=== PATIENT | male | born 1980 | race Caucasian/White ===

== ENCOUNTER 2022-06-29 11:52 | Emergency (ER) | payer OTHER ==
[~2022-06-29] VITALS: Ht 167.6 cm; Wt 77.1 kg
[2022-06-29 12:11] VITALS: BP 169/114
--- NOTE | 2022-06-29 12:18 | NUR ---
Patient ambulated to bed 5.
--- NOTE | 2022-06-29 12:31 | NUR ---
IV started, bloodwork obtained, walked to lab.
--- NOTE | 2022-06-29 12:31 | NUR ---
Dr. Suarez evaluating patient at bedside.
[2022-06-29] MEDS ORDERED: NACL 0.9% 2,000 ML IV ONE (12:35)
[2022-06-29] MEDS ORDERED: ENALAPRILAT 2.5 MG/2 ML VIAL IVP ONE (12:35)
[2022-06-29 13:08] LABS: BASOPHILS % (AUTO) 0.3 % (0.0-2.0); EOSINOPHILS % (AUTO) 0.4 % (0.0-4.0); HEMATOCRIT 46.6 % (36-52); HEMOGLOBIN 16.2 g/dL (12.0-18.0); LYMPHOCYTES # (AUTO) 1.6 K/uL (2.0-11.5); LYMPHOCYTES % (AUTO) 15.1 % (20.5-51.1); MEAN CORPUSCULAR HEMOGLOBIN 31 pg (27-31); MEAN CORPUSCULAR HGB CONC 35 g/dL (33-37); MEAN CORPUSCULAR VOLUME 89.2 fL (80-94); MONOCYTES # (AUTO) 0.4 K/uL (0.8-1.0); MONOCYTES % (AUTO) 3.7 % (1.7-9.3); NEUTROPHILS # (AUTO) 8.3 K/uL (1.8-7.7); NEUTROPHILS % (AUTO) 80.5 % (42.2-75.2); PLATELET COUNT (AUTO) 331 K/uL (140-450); RED BLOOD CELL COUNT(AUTO) 5.23 MIL/uL (4.20-6.10); RED CELL DISTRIBUTION WIDTH 13.4 % (11.6-13.7); WHITE BLOOD COUNT (AUTO) 10.3 K/uL (4.8-10.8)
--- NOTE | 2022-06-29 13:20 | NUR ---
42 y/o male bib self from Clinic for high blood sugar. At triage, blood sugar read HI. Patient denies any fever, chills or SOB. Patient states "his mouth is dry and is very thirsty." Patient denies any diagnosis of Diabetes. Medical History: HTN NKDA
[2022-06-29 13:28] LABS: ANION GAP 19.8 (8-16); ASPARTATE AMINOTRANSFERASE 23 U/L (15-37); CHLORIDE 94 mmol/L (98-107); CREATININE 1.1 mg/dL (0.6-1.3); GFR ARICAN-AMERICAN 94 mL/min (>90); POTASSIUM 3.8 mmol/L (3.5-5.1); SODIUM SERUM 134 mmol/L (136-145); TOTAL BILIRUBIN 0.6 mg/dL (0.0-1.0); UREA NITROGEN, BLOOD 24 mg/dL (7-18)
[2022-06-29 13:34] LABS: GLUCOSE 604 mg/dL (74-106)
[2022-06-29 13:53] LABS: APPEARANCE,URINE CLEAR (CLEAR); BILIRUBIN,URINE NEGATIVE (NEGATIVE); BLOOD, URINE TRACE-I (NEGATIVE); COLOR,URINE YELLOW (YELLOW); LEUKOCYTE ESTERASE ,URINE NEGATIVE (NEGATIVE); NITRITE, URINE NEGATIVE (NEGATIVE); PH,URINE 5.5 (5.0-9.0); UGLUCOSE 3+ (NEGATIVE)
[2022-06-29] MEDS ORDERED: LISI-486 PO (13:59)
[2022-06-29] MEDS ORDERED: METF-346 PO (13:59)
[2022-06-29 14:05] LABS: OTHER CASTS, URINE None Seen /LPF (None Seen); RBC,URINE 0-5 /HPF (0-5); WBC,URINE 0-5 /HPF (0-5)
[2022-06-29] MEDS ORDERED: NACL 0.9% 1,000 ML IV ONE (14:40)
[2022-06-29] MEDS ORDERED: INSULIN REGULAR, HUMAN 100 UNIT/ML VIAL IV ONE (14:45)
--- NOTE | 2022-06-29 15:11 | NUR ---
Patient is laying in bed, respirations even and unlabored. All needs met by staff.
--- NOTE | 2022-06-29 16:06 | NUR ---
BLOOD SUGAR IS [address] DR. PEÑA MADE AWARE.
[2022-06-29 16:16] VITALS: BP 127/84
--- NOTE | 2022-06-29 16:16 | NUR ---
Patient discharged with v/s stable. Written and verbal after care instructions given. Patient alert, oriented and verbalized understanding of instructions. Ambulatory with steady gait. All questions addressed prior to discharge. ID band removed. Patient advised to follow up with PMD. Rx of lisinopril and metformin given. Opportunity to ask questions provided and answered.
--- NOTE | 2022-06-29 16:40 | NUR ---
The patient's care was reviewed and supervised by ED Agency Nurse 8, RN, RN.
--- NOTE | 2022-07-02 09:14 | NUR ---
LATE ENTRY. 0.9% NS DISCONTINUED AT 1616 ON 06/29/22
== END 2022-06-29 16:16 | disposition home or self-care (01) ==
LOC: MED 11:52
DX: E11.65 Type 2 diabetes mellitus with hyperglycemia (principal); I10 Essential (primary) hypertension; Z79.4 Long term (current) use of insulin; Z79.899 Other long term (current) drug therapy
CPT/HCPCS: 36415; 71045; 80053; 81001; 84484; 85025; 93005; 96361; 96374; 96375; 99285; J1815; J3490; J7030; Q0092